=== PATIENT | male | born 1965 | race Two or more races ===

== ENCOUNTER 2017-10-14 14:25 | Emergency (ER) | payer OTHER ==
[~2017-10-14] VITALS: Ht 175.3 cm; Wt 107.0 kg
[2017-10-14] MEDS ORDERED: ceFAZolin 1000mg inj IV ONE (16:45)
[2017-10-14] MEDS ORDERED: TETanus/Pertussis (Acell)/Diphther VAC/PF (Tdap-Adult) 0.5ml syringe IM ONE (16:45)
[2017-10-14] MEDS ORDERED: bacitracin 15gm ointment TP ONE (16:45)
[2017-10-14] MEDS ORDERED: BUPIVAcaine 0.5% inj/PF 30 ml vial IJ ONE (16:45)
[2017-10-14] MEDS ORDERED: ceFAZolin 2gm in dextrose, iso 100 ML IV ONE (16:50)
[2017-10-14] MEDS ORDERED: HYDR-565 PO (17:18)
[2017-10-14] MEDS ORDERED: ONDA4TAB9 PO (17:18)
[2017-10-14 17:55] VITALS: BP 169/128
== END 2017-10-14 18:10 | disposition home or self-care (01) ==
LOC: ER 14:28
DX: S62.635B Displaced fracture of distal phalanx of left ring finger, initial encounter for open fracture (principal); W31.2XXA Contact with powered woodworking and forming machines, initial encounter; Y93.89 Activity, other specified; Y92.89 Other specified places as the place of occurrence of the external cause; Y99.8 Other external cause status
CPT/HCPCS: 64450; 90471; 90715; 96365; 99284; A6222; J0690; J3490; A6449; J7030